=== PATIENT | female | born 1990 | race Caucasian/White ===

== ENCOUNTER 2022-04-23 10:56 | Emergency (ER) | payer OTHER, SELFPAY ==
[2022-04-23 11:50] LABS: #Monocytes 0.2 10x3/uL (0.0-1.1); #Neutrophils 9.3 10x3/uL (1.5-8.4); %Basophils 0.2 % (0.0-2.0); %Eosinophils 0.1 % (0.0-6.0); %Lymphocytes 6.1 % (18.0-47.0); %Monocytes 2.3 % (0.0-10.0); %Neutrophils 91.1 % (40.0-75.0); Hemoglobin 13.3 g/dL (12.0-15.5); Mean Corpuscular HGB CONC 34.5 g/dL (32.0-36.0); Mean Corpuscular Hemoglobin 29.5 pg (27.0-33.0); Mean Corpuscular Volume 85.6 fl (81.6-98.3); Mean Platelet Volume 9.3 fl (7.4-10.4); Platelet Count 400 10x3/uL (150-450); RBC Distribution Width 12.5 % (11.5-14.5); Red Blood Cell (RBC) Count 4.51 10x6/uL (3.90-5.03); White Blood Cell (WBC) Count 10.2 10x3/uL (3.5-10.5)
[2022-04-23 12:13] LABS: ALT (SGPT) 18 U/L (8-55); AST (SGOT) 18 U/L (5-34); Albumin 4.6 g/dL (3.5-5.0); Alkaline Phosphatase 62 U/L (40-110); Anion Gap 14 mmol/L (10-20); BUN (Urea Nitrogen) 8 mg/dL (7.0-18.7); Bilirubin, Total 0.3 mg/dL (0.2-1.2); Calc. Creatinine Clearance 0 mL/min (70-130); Calcium 9.4 mg/dL (7.8-10.44); Carbon Dioxide 23 mmol/L (22-29); Chloride 107 mmol/L (98-107); Estimated GFR 123; Globulin 3.1 g/dL (2.4-3.5); Glucose 104 mg/dL (70-105); Potassium 4.5 mmol/L (3.5-5.1); Protein, Total 7.7 g/dL (6.0-8.3); Sodium 139 mmol/L (136-145)
[2022-04-23] MEDS ORDERED: Ondansetron PF 4 MG/2 ML Vial ONE ×2 (12:15→15:54)
[2022-04-23] MEDS ORDERED: Morphine 4 MG/ML VIAL ONE ×2 (12:15→15:54)
[2022-04-23] MEDS ORDERED: Ketorolac Tromethamine 30 MG/ML VIAL ONE (12:15)
[2022-04-23 12:17] LABS: BHCG - Serum Negative (NEGATIVE); Pregs Control Background? CLEAR/WHITE (CLR/WHITE); Pregs Control Bar Appear? YES (CONTROL BAR)
[2022-04-23] MEDS ORDERED: Iopamidol 300 61% 100 ML VIAL FS ONE (14:55)
[2022-04-23] MEDS ORDERED: Lidocaine 1% PF 5 ML VIAL ONE (15:14)
== END 2022-04-23 16:10 | disposition home or self-care (01) ==
LOC: CSHERS 10:56
DX: K12.2 Cellulitis and abscess of mouth (principal)
CPT/HCPCS: 10060; 70491; 80053; 84703; 85025; 96374; 96375; 96376; J1885; J2270; J2405; Q9967